=== PATIENT | female | born 1940 | race Two or more races ===

== ENCOUNTER 2025-08-01 15:40 | Emergency (ER) | payer OTHER ==
[~2025-08-01] VITALS: Ht 157.5 cm; Wt 57.0 kg
--- NOTE | 2025-08-01 15:49 | ED.PDOC ---
Altered Mental Status HPI Comments HPI: This is a 84 year old female BIBA presenting to the ED with chief complaint of ALOC. EMS reports that the patient had cataract surgery performed on Tuesday, however, family noticed the patient become more altered than usual on Tuesday. EMS relays patient has history of Dementia, but patient is not at her baseline according to the family due to the patient being more paranoid than usual and repeating questions over and over again. Patient notes that her eyes hurt from the surgery. Patient only answering simple questions and denies any further symptoms or concerns at this time. Past Medical History: Dementia, HTN, stroke Past Surgical History: Cataract surgery Social History: Denies smoking, ETOH, or drug use. Medications: Reviewed Allergies: NKDA HPI: Poor Historian. REVIEW OF SYSTEMS: CONSTITUTIONAL: Denies acute: fever, diaphoresis, chills, generalized weakness. HEAD: Denies acute: headache, photophobia Eyes: Denies acute: Double vision, vision loss, eye pain, eye discharge. EARS: Denies acute: tinnitus, hearing loss, ear discharge, ear pain, THROAT: Denies acute: sore throat, swelling, difficulty swallowing , pain with swallowing, change in voice. NECK: Denies acute: neck pain, neck swelling, stiff neck. HEART: Denies acute : chest pain, palpitations, LUNGS: Denies acute: SOB, wheezing, cough, hemoptysis ABDOMEN: Denies acute: abdominal pain, Nausea, Vomiting, diarrhea, melena , hematemesis, hematochezia SKIN: Denies acute: rash, redness, lesions, itchiness. EXTREMITIES: Denies acute: calf pain, numbness, tingling, weakness, denies pain in extremity. Denies acute: Low back pain. Neuro: Denies acute: focal neurological deficit, motor or sensory focal neurological deficit, tremors, seizure like activity, dizziness, loss of bowel or bladder function, cauda equina like symptoms. : Denies acute: dysuria, hematuria, flank pain, increase in urinary frequency. PSYCH: Denies acute: hallucination, suicidal ideation, homicidal ideation. FEMALE: Denies acute: abnormal vaginal bleeding, foul odor, unusual discharge. PHYSICAL EXAM: General: ---no----acute distress, awake and alert. Head: normocephalic, atraumatic. No raccoon's eyes, no venegas sign. Neck: supple, trachea is midline, no swelling. Throat: Normal phonation. Eyes:, no erythema, no purulent discharge, no proptosis, no icterus. Heart: regular rate, regular rhythm, no significant murmur appreciated. Lungs: no apparent respiratory distress, Able to speak in full sentences. No wheezing, no rhonchi, no crackles. No stridors Clear to auscultation bilaterally. Abdomen: non tender to palpation, non distended, soft, no guarding, no rebound, + bowel sounds. Neuro: Awake, Alert, oriented to name, self, follows commands Speech is normal. Skin: no petechia, no purpura, no cyanosis, non-pale, not jaundice. Lower extremities: --no - Pitting edema no deformity, no focal swelling, no calf TTP. Makes eye contact. moves all four extremities. Face: no apparent facial droop. No nuchal rigidity, Kernig's sign, Brudzinski's sign, no meningeal signs. ED COURSE: DISCLAIMER: This medical document was created using an electronic medical record system with voice recognition software and computerized dictation system. Although this document has been carefully reviewed, there might still be some phonetic and typographical errors. Occasional wrong-word or "sound-alike" substitutions may have occurred due to the inherent limitations of voice recognition software. These areas are purely typographical due to imperfections of the software programs and do not reflect any compromise in the patient's medical care. Please read the chart carefully and recognize, using context, where these substitutions have occurred. Chief Complaint: ALOC Time Seen by MD: 15:45 Reviewed Notes: Medications, Allergies Allergies: Coded Allergies: NO KNOWN ALLERGIES (Unverified , 08/01/25) Information Source: Patient, Emergency Med Personnel Mode of Arrival: EMS Was a procedure done? Was a procedure done?: No X-Ray, Labs, Meds, VS Vital Signs Date Time Temp Pulse Resp B/P (MAP) Pulse Ox O2 Delivery O2 Flow Rate FiO2 08/01/25 19:22 67 Room Air* 0 21 08/01/25 19:22 98.0 67 18 152/57 (88) 96 98.0 11/20/25 16:28 84 08/01/25 15:43 98.0 89 18 180/79 98 98.0 Lab Test 08/01/25 20:37 08/01/25 14:12 Range/Units Urine Color Light-yellow Yellow Urine Clarity Turbid H Clear Urine pH 5.5 5.0-9.0 Urine Specific [place]orest 1.016 1.001-1.035 Urine Protein Trace H Negative Urine Ketones 1+ H Negative Urine Blood 1+ H Negative /uL Urine Nitrite Negative Negative Urine Bilirubin Negative Negative Urine Urobilinogen Normal Negative mg/dL Urine Leukocyte Esterase 3+ Negative /uL Urine RBC 3 0 - 4 /hpf Urine Microscopic WBC 66 H 0-5 /HPF Urine Squamous Epithelial Cells Few <5 /hpf Urine Bacteria Few H None Seen /hpf Urine Hyaline Casts Few 0 - 2 /lpf Urine Mucus Few None Seen Urine Glucose 3+ H Normal mg/dL White Blood Count 9.4 4.4-10.8 10^3/uL Red Blood Count 4.45 4.0-5.20 10^6/uL Hemoglobin 13.3 12.2-16.2 g/dL Hematocrit 39.5 36.0-46.0 % Mean Corpuscular Volume 88.7 80.0-100.0 fL Mean Corpuscular Hemoglobin 29.8 28.0-32.0 pg Mean Corpuscular Hemoglobin Concent 33.6 32.0-36.0 g/dL Red Cell Distribution Width 14.0 11.8-14.3 % Platelet Count 232 140-450 10^3/uL Mean Platelet Volume 8.1 6.9-10.8 fL Neutrophils (%) (Auto) 73.7 37.0-80.0 % Lymphocytes (%) (Auto) 17.2 10.0-50.0 % Monocytes (%) (Auto) 8.0 0.0-12.0 % Eosinophils (%) (Auto) 0.3 0.0-7.0 % Basophils (%) (Auto) 0.8 0.0-2.0 % Neutrophils # (Auto) 6.9 1.6-8.6 10 ^3/uL Lymphocytes # (Auto) 1.6 0.4-5.4 10 ^3/uL Monocytes # (Auto) 0.8 0-1.3 10 ^3/uL Eosinophils # (Auto) 0 0-0.8 10 ^3/uL Basophils # (Auto) 0.1 0-0.2 10 ^3/uL Nucleated Red Blood Cells 0.1 % Sodium Level 141 136-145 mmol/L Potassium Level 3.6 3.5-5.1 mmol/L Chloride Level 105 98-107 mmol/L Carbon Dioxide Level 22 20-31 mmol/L Anion Gap 14 5-15 Blood Urea Nitrogen 14 9-23 mg/dL Creatinine 1.15 H 0.550-1.02 mg/dL Glomerular Filtration Rate Calc 47 >90 mL/min BUN/Creatinine Ratio 12.2 10.0-20.0 Serum Glucose 187 H 74-106 mg/dL Calcium Level 9.2 8.7-10.4 mg/dL Total Bilirubin 0.7 0.2-1.0 mg/dL Aspartate Amino Transferase (AST) 39 13-40 U/L Alanine Aminotransferase (ALT) 29 7-40 U/L Alkaline Phosphatase 120 H 46-116 U/L Troponin I High Sensitivity 31 </=34 ng/L Total Protein 7.0 5.7-8.2 g/dL Albumin 4.0 3.2-4.8 g/dL Time of 1ST Reevaluation: 16:44 Reevaluation 1ST: Unchanged Time of 2ND Reevaluation: 21:24 (Son is at bedside. He said that the patient has been angry at home earlier today. They notified her dementia doctor who told him that this could be a reaction to the anesthesia she had her medication she received for her eye surgery on Tuesday. However he states that she is looking much better now in his back to her baseline. I offered the admit the patient to the hospital but the son feels comfortable to take her home with close follow up. Patient tolerating p.o. intake well here in the ED.) Patient Education/Counseling: Diagnosis, Treatment Family Education/Counseling: Diagnosis, Treatment Departure 1 Departure Time of Disposition: 21:23 Impression: Primary Impression: UTI (urinary tract infection) Disposition: 01 HOME / SELF CARE / HOMELESS Condition: Stable Additional Instructions: Additional instructions: Please read all instructions provided in this packet carefully. You MUST follow-up with your primary care/family doctor in 1 to 2 days. If you are unable to see your primary care/family doctor, please return to our emergency room for re-assessment and re-evaluation in 1 to 2 days. Return to the emergency room here in our facility or to the nearest ER [facility] if your symptoms change or worsen. CONSULTATIONS: you MUST Follow-up for consultation as soon as possible with: ---- You MUST call the consultants office yourself to make an appointment. You may need to arrange that through your insurance and/or your primary/family doctor. If you are unable to see the senior analytic consultant in 1 to 2 days, you must return to our emergency room (or any other ER of your choice) for re-assessment and re- evaluation. Adequate fluid hydration. Although you have been discharged from the Emergency Department, this does not mean that you have a "clean bill of health". No definitive diagnosis for your symptoms has been made today. It is possible that you are in the process of developing a serious illness. This is why you must return to the ED without fail if any new or worsening symptoms develop. e-Prescriptions Nitrofurantoin Monohydrate Mac (Macrobid) 100 Mg Cap 100 MG PO BID for 7 Days, #14 CAP Prov: FABIOLA BROWN DO 08/01/25 Discharged With: Self Critical Care Note Critical Care Time?: No I personally scribed for FABIOLA BROWN DO ([email or web address]) on 08/01/25 at 15:49. Electronically submitted by Chandana Vick ([email or web address]). FABIOLA BROWN DO Aug 01, 2025 15:49
[2025-08-01 16:19] LABS: Hematocrit 39.5 % (36.0-46.0); Hemoglobin 13.3 g/dL (12.2-16.2); Mean Corpuscular Hemoglobin 29.8 pg (28.0-32.0); Mean Corpuscular Volume 88.7 fL (80.0-100.0); Nucleated Red Blood Cells % 0.1 %
[2025-08-01 16:34] LABS: Alanine Aminotransferase 29 U/L (7-40); Albumin 4.0 g/dL (3.2-4.8); Anion Gap 14 (5-15); BUN/Creatinine Ratio 12.2 (10.0-20.0); Bilirubin, Total 0.7 mg/dL (0.2-1.0); Blood Urea Nitrogen 14 mg/dL (9-23); Calcium 9.2 mg/dL (8.7-10.4); Carbon Dioxide 22 mmol/L (20-31); Chloride 105 mmol/L (98-107); Potassium 3.6 mmol/L (3.5-5.1); Sodium 141 mmol/L (136-145); Total Protein 7.0 g/dL (5.7-8.2)
[2025-08-01 16:35] LABS: Alkaline Phosphatase 120 U/L (46-116); Glucose 187 mg/dL (74-106)
--- NOTE | 2025-08-01 19:09 | ECG ---
[facility] Test Date: 2025-08-01 Test Time: 15:50:32 Pat Name: VANDA OROZCO Department: ED Room: Gender: F Airplane First Officer: SILAS : 1940 Requested By: FABIOLA BROWN Order Number: [id number] Reading MD: Rafael Anderson Measurements Intervals [place] Rate: 84 P: 68 GA: 178 QRS: 56 QRSD: 87 T: 175 QT: 426 QTc: 504 Interpretive Statements Sinus rhythm Borderline repolarization abnormality Prolonged QT interval Baseline wander in lead(s) II,aVR,aVF Electronically Signed On 08-01-2025 19:26:09 PST by Rafael Anderson Please click the below link to view image of tracing.
[2025-08-01 19:22] VITALS: PULSE 67
[2025-08-01 21:15] LABS: Urine Protein, UAD TRACE (Negative)
[2025-08-01] MEDS ORDERED: NITR-87 PO (21:25)
[2025-08-01] MEDS: cefTRIAXone SOD 1,000 MG VL IM ONE (21:56)
[2025-08-01 22:00] VITALS: BP 142/67; PULSE 62; RESP 16; TEMP 97.7; O2SAT 98
== END 2025-08-01 22:03 | disposition home or self-care (01) ==
LOC: EDBD 15:40 → ER 15:40
DX: N39.0 Urinary tract infection, site not specified (principal); I10 Essential (primary) hypertension; F03.92 Unspecified dementia, unspecified severity, with psychotic disturbance; Z86.73 Personal history of transient ischemic attack (TIA), and cerebral infarction without residual deficits
CPT/HCPCS: 36415; 80053; 81001; 84484; 85025; 93005; 96372; 99284; J0696

== ENCOUNTER 2025-08-03 19:18 | Emergency (ER) | payer OTHER ==
[~2025-08-03] VITALS: Ht 162.6 cm; Wt 72.7 kg
[~2025-08-03 19:18] MED LIST: NITR-87 PO
[2025-08-03 20:22] VITALS: PULSE 76; RESP 12; O2SAT 97
--- NOTE | 2025-08-03 20:33 | ED.PDOC ---
HPI Comments 81-year-old female is brought in by ambulance for chief complaint of increased confusion. Patient is a poor historian. Per EMS personnel report, patient's family called, due to patient having more confusion than her usual baseline, today. Recent history of UTI diagnosis with antibiotic regimen placement on 07/31/25. Patient arrived hypertensive. Further history is limited, due to patient's current condition absence of family/medical claims representative historians. Past Medical History: Dementia, HTN, stroke Past Surgical History: Cataract surgery Social History: Denies smoking, ETOH, or drug use. Medications: Reviewed Allergies: NKDA HPI: Poor Historian. REVIEW OF SYSTEMS: CONSTITUTIONAL: Denies acute: fever, diaphoresis, chills, generalized weakness. HEAD: Denies acute: headache, photophobia Eyes: Denies acute: Double vision, vision loss, eye pain, eye discharge. EARS: Denies acute: tinnitus, hearing loss, ear discharge, ear pain, THROAT: Denies acute: sore throat, swelling, difficulty swallowing , pain with swallowing, change in voice. NECK: Denies acute: neck pain, neck swelling, stiff neck. HEART: Denies acute : chest pain, palpitations, LUNGS: Denies acute: SOB, wheezing, cough, hemoptysis ABDOMEN: Denies acute: abdominal pain, Nausea, Vomiting, diarrhea, melena , hematemesis, hematochezia SKIN: Denies acute: rash, redness, lesions, itchiness. EXTREMITIES: Denies acute: calf pain, numbness, tingling, weakness, denies pain in extremity. Denies acute: Low back pain. Neuro: Denies acute: focal neurological deficit, motor or sensory focal neurological deficit, tremors, seizure like activity, confusion, dizziness, change in mental status, loss of bowel or bladder function, cauda equina like symptoms. : Denies acute: dysuria, hematuria, flank pain, increase in urinary frequency. PSYCH: Denies acute: hallucination, suicidal ideation, homicidal ideation. FEMALE: Denies acute: abnormal vaginal bleeding, foul odor, unusual discharge. PHYSICAL EXAM: General: ---mild-----acute distress, awake and alert. Head: normocephalic, atraumatic. No raccoon's eyes, no venegas sign. Neck: supple, trachea is midline, no swelling. Throat: Normal phonation. Eyes:, no erythema, no purulent discharge, no proptosis, no icterus. Heart: regular rate, regular rhythm, no significant murmur appreciated. Lungs: no apparent respiratory distress, Able to speak in full sentences. No wheezing, no rhonchi, no crackles. No stridors Clear to auscultation bilaterally. Abdomen: non tender to palpation, non distended, soft, no guarding, no rebound, + bowel sounds. Neuro: Awake, Alert, oriented to name, self, follows commands Speech is normal. Skin: no petechia, no purpura, no cyanosis, non-pale, not jaundice. Lower extremities: --no - Pitting edema no deformity, no focal swelling, no calf TTP. Makes eye contact. moves all four extremities. Face: no apparent facial droop. ED COURSE: DISCLAIMER: This medical document was created using an electronic medical record system with voice recognition software and computerized dictation system. Although this document has been carefully reviewed, there might still be some phonetic and typographical errors. Occasional wrong-word or "sound-alike" substitutions may have occurred due to the inherent limitations of voice recognition software. These areas are purely typographical due to imperfections of the software programs and do not reflect any compromise in the patient's medical care. Please read the chart carefully and recognize, using context, where these substitutions have occurred. Chief Complaint: Confusion Time Seen by MD: 20:20 Reviewed Notes: Allergies Allergies: Coded Allergies: NO KNOWN ALLERGIES (Unverified , 08/01/25) Home Meds Active Scripts Nitrofurantoin Monohydrate Mac (Macrobid) 100 Mg Cap, 100 MG PO BID for 7 Days, #14 CAP Prov:FABIOLA BROWN Charla DO 08/01/25 Information Source: Patient, Emergency Med Personnel Mode of Arrival: EMS Was a procedure done? Was a procedure done?: No CP Differential Dx Differential Diagnosis: N/A Differential Diagnosis: Other (DDX include renal disease, thyroid disease, electrolyte abnormality, increased salt intake, medications non-compliance, undiagnosed HTN, Hypertensive crisis, hypertensive urgency., drug toxicity.) X-Ray, Labs, Meds, VS Vital Signs Date Time Temp Pulse Resp B/P (MAP) Pulse Ox O2 Delivery O2 Flow Rate FiO2 08/04/25 05:01 80 170/81 08/04/25 05:00 98.1 81 18 170/81 (110) 98 98.1 08/04/25 04:21 98.1 77 20 180/79 (112) 97 98.1 08/04/25 04:01 76 187/73 08/04/25 02:53 80 179/76 08/04/25 01:53 80 199/76 08/04/25 00:08 78 16 178/84 (115) 97 08/03/25 21:23 168/68 (101) 08/03/25 20:40 76 203/79 08/03/25 20:22 98.4 76 12 203/79 (120) 97 98.4 08/03/25 20:22 76 12 97 Room Air* 0 21 08/03/25 19:30 98.2 70 16 185/84 97 98.2 Lab Test 08/03/25 22:24 08/03/25 21:27 Range/Units Troponin I High Sensitivity 19 19 </=34 ng/L White Blood Count 8.4 4.4-10.8 10^3/uL Red Blood Count 4.06 4.0-5.20 10^6/uL Hemoglobin 12.1 L 12.2-16.2 g/dL Hematocrit 35.5 #L 36.0-46.0 % Mean Corpuscular Volume 87.5 80.0-100.0 fL Mean Corpuscular Hemoglobin 29.8 28.0-32.0 pg Mean Corpuscular Hemoglobin Concent 34.1 32.0-36.0 g/dL Red Cell Distribution Width 13.9 11.8-14.3 % Platelet Count 247 140-450 10^3/uL Mean Platelet Volume 8.0 6.9-10.8 fL Neutrophils (%) (Auto) 59.8 37.0-80.0 % Lymphocytes (%) (Auto) 29.6 10.0-50.0 % Monocytes (%) (Auto) 8.6 0.0-12.0 % Eosinophils (%) (Auto) 1.1 0.0-7.0 % Basophils (%) (Auto) 0.9 0.0-2.0 % Neutrophils # (Auto) 5.0 1.6-8.6 10 ^3/uL Lymphocytes # (Auto) 2.5 0.4-5.4 10 ^3/uL Monocytes # (Auto) 0.7 0-1.3 10 ^3/uL Eosinophils # (Auto) 0.1 0-0.8 10 ^3/uL Basophils # (Auto) 0.1 0-0.2 10 ^3/uL Nucleated Red Blood Cells 0.1 % Sodium Level 142 136-145 mmol/L Potassium Level 3.3 L 3.5-5.1 mmol/L Chloride Level 106 98-107 mmol/L Carbon Dioxide Level 26 20-31 mmol/L Anion Gap 10 5-15 Blood Urea Nitrogen 15 9-23 mg/dL Creatinine 1.17 H 0.550-1.02 mg/dL Glomerular Filtration Rate Calc 46 >90 mL/min BUN/Creatinine Ratio 12.8 10.0-20.0 Serum Glucose 124 H 74-106 mg/dL Lactic Acid Level 1.5 0.4-2.0 mmol/L Calcium Level 9.3 8.7-10.4 mg/dL Total Bilirubin 0.4 0.2-1.0 mg/dL Aspartate Amino Transferase (AST) 45 H 13-40 U/L Alanine Aminotransferase (ALT) 29 7-40 U/L Alkaline Phosphatase 103 46-116 U/L Total Protein 7.1 5.7-8.2 g/dL Albumin 3.9 3.2-4.8 g/dL Current Medications Medications (Trade) Dose Ordered Sig/Meeta Route Start Time Stop Time Status Last Admin Labetalol HCl (Labetalol HCl) 5 mg ONCE ONCE IV 08/03/25 21:00 08/03/25 21:01 DC 08/03/25 20:40 Labetalol HCl (Labetalol HCl) 5 mg ONCE ONCE IV 08/04/25 01:45 08/04/25 01:46 DC 08/04/25 01:53 Labetalol HCl (Labetalol HCl) 5 mg ONCE ONCE IV 08/04/25 04:00 08/04/25 04:01 DC 08/04/25 04:01 [facility] [id number] [place] [id number] Ph: [phone] DIAGNOSTIC IMAGING Diagnostic Imaging Report : [id number] Signed PATIENT: VANDA OROZCO ACCT: [id number] UNIT: [id number] : 1940 LOC: ER ROOM / BED: / AGE / SEX: 84 / F ADM STATUS: REG ER SERVICE 42 ORDERING PHYSICIAN: FABIOLA BROWN DO PROCEDURE(s): CXRP - CHEST PORTABLE REASON: htn ORDER NUMBER(s): [id number], ACCESSION NUMBER(s): [id number] EXAM: XY CHEST PORTABLE HISTORY: htn TECHNIQUE: 1 view of the chest COMPARISON: None FINDINGS/IMPRESSION: LUNGS: No pleural effusion, consolidation, or pneumothorax. MEDIASTINUM: Normal cardiac size. Postoperative changes to the chest. BONES: No acute osseous abnormality. degenerative change of bilateral [id number]-left glenohumeral joints. OTHER: Vascular calcifications. ATED BY: LUCIO PARK MD DICTATED DATE/TIME: 08/03/252110 SIGNED BY: LUCIO PARK MD SIGNED DATE/TIME: 08/03/252110 CC: Time of 1ST Reevaluation: 20:50 Reevaluation 1ST: Unchanged Time of 2ND Reevaluation: 03:09 (The case was discussed with the [facility] admitting team (HPI, physical exam, labs and diagnostic tests that were veronica ilable at the time of disposition, ED course, treatment plan) on the phone. They agreed to transfer the patient to their service by ALS for further evaluation and treatment. Dr. senior--. Authorization number is--[id number]) Reevaluation 2ND: Improved Patient Education/Counseling: Other (Patient has dementia) Family Education/Counseling: No Family Present Comments MDM: patient presented with the above HPI.--hypertensive crisis----workup was initiated. patient was found with the above mentioned diagnosis. the following medications were ordered: please refer to order lists of meds and tests obtained by myself Dr. Brown. Patient ED course and VS have been stabilized. Patient has been reassessed in the ED and remained in a stable condition. Pertinent incidental findings were discussed with the patient and/or family. Patient/family voices understanding and is agreeable with plan. Patient has been observed in the ED adequate length of time to insure improvement/stability. Escalation of care considered: Consideration of escalation to observation or admission Patient required multiple IV medication intervention for blood pressure control. Patient was transferred to [facility] per insurance requirement to the medicine team for further evaluation and treatment of their presentation. All the reports of any imaging studies that were ordered by myself were reviewed by myself. SEPSIS Sepsis Screen Date sepsis recognized/suspect: Aug 03, 2025 Time Sepsis recognized/suspect: 1929 Recent Procedure: No On Antibiotic Therapy: No Respiratory Rate >20: No Heart Rate >90: No Temp<36 C (96.8 F) or >38.3 C: No SBP <90 or MAP <65 mmHG: No New Acute Mental Status Change: No Is the patient on CPAP, BIPAP,: No Physician Orders Knitted Garment Finisher (08/03/25 ) Urinalysis (08/03/25 20:43) Chest Portable (08/03/25 20:43) Imaging Transfer Request (08/04/25 03:59) Vital Signs Date Time Temp Pulse Resp B/P (MAP) Pulse Ox O2 Delivery O2 Flow Rate FiO2 08/04/25 05:01 80 170/81 08/04/25 05:00 98.1 81 18 170/81 (110) 98 98.1 08/04/25 04:21 98.1 77 20 180/79 (112) 97 98.1 08/04/25 04:01 76 187/73 08/04/25 02:53 80 179/76 08/04/25 01:53 80 199/76 08/04/25 00:08 78 16 178/84 (115) 97 08/03/25 21:23 168/68 (101) 08/03/25 20:40 76 203/79 08/03/25 20:22 98.4 76 12 203/79 (120) 97 98.4 08/03/25 20:22 76 12 97 Room Air* 0 21 08/03/25 19:30 98.2 70 16 185/84 97 98.2 Laboratory Tests Test 08/03/25 21:27 Lactic Acid Level 1.5 mmol/L (0.4-2.0) White Blood Count 8.4 10^3/uL (4.4-10.8) Departure 1 Departure Time of Disposition: 01:39 Impression: Primary Impression: Hypertensive crisis Additional Impression: Dementia Disposition: ADMITTED INPATIENT Admit to: Tele Condition: Guarded Discharged With: Self Critical Care Note Critical Care Time?: Yes (55 min-critical care time only) Critical care comment: Due to a high probability of clinically significant, life threatening deterioration, the patient required my highest level of preparedness to intervene emergently and I personally spent this critical care time directly and personally managing the patient. This critical care time included obtaining a history; examining the patient; pulse oximetry; ordering and review of studies; arranging urgent treatment with development of a management plan; evaluation of patient's response to treatment; frequent reassessment; and, discussions with other providers. This critical care time was performed to assess and manage the high probability of imminent, life-threatening deterioration that could result in multi-organ failure. It was exclusive of separately billable procedures and treating other patients and teaching time. Please see my other sections and the rest of the note for further information on patient assessment and treatment. I personally scribed for FABIOLA BROWN DO ([email or web address]) on 08/03/25 at 20:33. Electronically submitted by Suman Goldsmith ([email or web address]). I personally scribed for FABIOLA BROWN DO ([email or web address]) on 08/03/25 at 23:10. Electronically submitted by Suman Goldsmith ([email or web address]). FABIOLA BROWN DO Aug 03, 2025 20:33
[2025-08-03] MEDS: LABETALOL HCL 20 MG/4 ML VL IV ONE (20:40)
--- NOTE | 2025-08-03 21:14 | DVH ---
EXAM: XY CHEST PORTABLE HISTORY: htn TECHNIQUE: 1 view of the chest COMPARISON: None FINDINGS/IMPRESSION: LUNGS: No pleural effusion, consolidation, or pneumothorax. MEDIASTINUM: Normal cardiac size. Postoperative changes to the chest. BONES: No acute osseous abnormality. degenerative change of bilateral ojicr-eyxycpp-fmzv-left glenohumeral joints. OTHER: Vascular calcifications.
[2025-08-03 21:40] LABS: Hematocrit 35.5 % (36.0-46.0); Hemoglobin 12.1 g/dL (12.2-16.2); Mean Corpuscular Hemoglobin 29.8 pg (28.0-32.0); Mean Corpuscular Volume 87.5 fL (80.0-100.0); Nucleated Red Blood Cells % 0.1 %
[2025-08-03 22:00] LABS: Alanine Aminotransferase 29 U/L (7-40); Albumin 3.9 g/dL (3.2-4.8); Alkaline Phosphatase 103 U/L (46-116); Anion Gap 10 (5-15); BUN/Creatinine Ratio 12.8 (10.0-20.0); Bilirubin, Total 0.4 mg/dL (0.2-1.0); Blood Urea Nitrogen 15 mg/dL (9-23); Calcium 9.3 mg/dL (8.7-10.4); Carbon Dioxide 26 mmol/L (20-31); Chloride 106 mmol/L (98-107); Sodium 142 mmol/L (136-145); Total Protein 7.1 g/dL (5.7-8.2)
[2025-08-03 22:30] LABS: Glucose 124 mg/dL (74-106); Potassium 3.3 mmol/L (3.5-5.1)
[2025-08-04] MEDS: LABETALOL HCL 20 MG/4 ML VL IV ONE ×2 (01:53→04:01)
[2025-08-04 05:00] VITALS: BP 170/81; PULSE 81; RESP 18; TEMP 98.1; O2SAT 98
== END 2025-08-04 03:53 | disposition short-term general hospital (02) ==
LOC: ER 19:18 → EDBD 19:18 → EDUNIT# 19:18 → ER 08-04 03:53
DX: I16.9 Hypertensive crisis, unspecified (principal); F03.90 Unspecified dementia, unspecified severity, without behavioral disturbance, psychotic disturbance, mood disturbance, and anxiety; Z86.73 Personal history of transient ischemic attack (TIA), and cerebral infarction without residual deficits; Z79.899 Other long term (current) drug therapy
CPT/HCPCS: 36415; 71045; 80053; 83605; 84484; 85025; 96374; 96376